=== PATIENT | male | born 1960 | race Caucasian/White ===

== ENCOUNTER 2021-10-16 05:41 | Emergency (ER) | payer OTHER ==
[2021-10-16 05:51] VITALS: BP 120/78; PULSE 119; RESP 16; TEMP 97.9
--- NOTE | 2021-10-16 06:14 | ED ---
Medical Clearance HPI - General Chief complaint: Medical Clearance Stated complaint: Medical Clearance Time Seen by Provider: 10/16/21 05:54 Source: patient, police, RN notes reviewed Mode of arrival: ambulatory Limitations: no limitations - History of Present Illness Initial comments: This 61-year-old male presents emergency Department chief complaint of needing Clearance. Patient states that he was having an argument states he is hyperventilating states he lost his balance as he tripped striking his head on a plastic chair. Patient had no loss conscious has no current headache dizziness blurred vision states tetanus is up today is a superficial abrasion. He states his glasses caused injury he has no pain with ocular movement no complaints. He states that because he told custodial he had prior meningioma surgery 20 years ago they were worried. He states that he has no complaints and does not need to be here. Allergies/Adverse reactions: Allergies Allergy/AdvReac Type Severity Reaction Status Date / Time No Known Allergies Allergy Verified 10/16/21 05:43 Review of Systems ROS Statement: Those systems with pertinent positive or pertinent negative responses have been documented in the HPI. ROS Other: All systems not noted in ROS Statement are negative. Past Medical History Additional Past Medical History / Comment(s): HIV History of Any Multi-Drug Resistant Organisms: None Reported Past Surgical History: Orthopedic Surgery Additional Past Surgical History / Comment(s): brain surgery, L arm Past Psychological History: Depression Smoking Status: Never smoker Past Alcohol Use History: Occasional Past Drug Use History: Marijuana General Exam General appearance: alert, in no apparent distress Head exam: Present: atraumatic, normocephalic, normal inspection Eye exam: Present: normal appearance, PERRL, EOMI, other (Small abrasion right superior periorbital). Absent: scleral icterus, conjunctival injection, periorbital swelling, periorbital tenderness ENT exam: Present: normal exam, normal oropharynx, mucous membranes moist Neck exam: Present: normal inspection, full ROM. Absent: tenderness, meningismus, lymphadenopathy Respiratory exam: Present: normal lung sounds bilaterally. Absent: respiratory distress, wheezes, rales, rhonchi, stridor Cardiovascular Exam: Present: regular rate, normal rhythm, normal heart sounds. Absent: systolic murmur, diastolic murmur, rubs, gallop, clicks Neurological exam: Present: alert, oriented X3, CN II-XII intact, reflexes normal. Absent: motor sensory deficit Skin exam: Present: warm, dry, intact, normal color. Absent: rash Course Vital Signs 10/16/21 05:43 Temperature 97.9 F Pulse Rate 119 H Respiratory 16 Rate Blood Pressure 120/78 O2 Sat by Pulse 97 Oximetry Medical Decision Making - Medical Decision Making Patient is asymptomatic, normal neuro exam. Patient be discharged in stable condition return parameters were discussed. Disposition Clinical Impression: Medical clearance for incarceration Disposition: HOME SELF-CARE Condition: Stable Additional Instructions: Please return to the Emergency Department if symptoms worsen or any other concerns. Is patient prescribed a controlled substance at d/c from ED?: No Referrals: None,Stated [Primary Care Provider] - 1-2 days Time of Disposition: 06:14
== END 2021-10-16 06:27 | disposition home or self-care (01) ==
LOC: EC 05:41
CPT/HCPCS: 99283